=== PATIENT | female | born 1975 | race Caucasian/White ===

== ENCOUNTER 2017-02-26 12:32 | Emergency (ER) | payer MEDICAID ==
[2017-02-26 13:19] VITALS: BP 197/90
[2017-02-26] MEDS ORDERED: Sodium Chloride 0.9% 5 ML Syringe FLUSH PRN (13:23)
[2017-02-26 13:39] LABS: CHLORIDE,CL 105 mmol/L (98-115); SODIUM,NA 142 mmol/L (136-145)
--- NOTE | 2017-02-26 13:47 | EDM.PDOC ---
ED HPI GENERAL MEDICAL PROBLEM - General Chief Complaint: Abdominal Pain Stated Complaint: Abdominal pain and nausea Time Seen by Provider: 02/26/17 13:00 Source of Information: Reports: Patient History Limitations: Reports: No Limitations - History of Present Illness INITIAL COMMENTS - FREE TEXT/NARRATIVE: 41 YO WF presents to ER due to request for narcotic medication refill. Pt reports she was seen by Dr Rula Nelson in office yesterday and after her appointment she was expecting her hydrocodone prescription to be filled today. Pt went to the pharmacy and was told her prescription wouldn't be ready until tomorrow. Pt reports she feels nauseated and has a mild headache. Pt reports she came to ER specifically for pain medication. She denies abdominal pain, but states her stomach feels "upset". Pt refusing any antiemetics due to the fact that she has some at home. Pt denies any fever/chills, denies back pain, denies dysuria. Onset: today Duration: Day(s): (1) Severity: mild Improves with: Reports: None Worsens with: Reports: None Associated Symptoms: Reports: no other symptoms, headaches, nausea/vomiting Generalized Pain Score (Numeric/FACES): 5 - Related Data Allergies Allergy/AdvReac Type Severity Reaction Status Date / Time No Known Drug Allergies Allergy Cannot Verified 02/26/17 12:44 Remember sun Allergy Rash Uncoded 11/17/16 15:27 Home Meds: Home Meds Zolpidem [Ambien] 10 mg PO BEDTIME PRN 11/22/15 [History] Cholestyramine (With Sugar) [Cholestyramine Powder] 1 scoop PO DAILY 01/13/16 [ History] FLUoxetine HCl [Prozac] 40 mg PO DAILY 01/13/16 [History] medroxyPROGESTERone Acetate [Depo-Provera] 150 mg IM Q3M 01/13/16 [History] Hydrocodone/Acetaminophen [Hydrocodon-Acetaminophn 10-325] 1 each PO TID [History] Omeprazole [Omeprazole] 40 mg PO DAILY 11/17/16 [History] Ondansetron [Zuplenz] 4 mg PO TID PRN 11/17/16 [History] buPROPion [Wellbutrin XL] 150 mg PO DAILY 11/17/16 [History] busPIRone [Buspar] 10 mg PO TID PRN 11/17/16 [History] tiZANidine [Zanaflex] 4 mg PO TID PRN 11/17/16 [History] Meloxicam [Mobic] 7.5 mg PO BID PRN 02/26/17 [History] traZODone 1 - 2 tab PO BEDTIME 02/26/17 [History] Past Medical History HEENT History: Reports: Impaired vision Respiratory History: Reports: Intubation, previous Gastrointestinal History: Reports: Cholelithiasis, GERD, Irritable bowel syndrome Genitourinary History: Reports: None 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 - Past Surgical History HEENT Surgical History: Reports: Tonsillectomy, Other (see below) Other HEENT Surgeries/Procedures: removal of teeth GI Surgical History: Reports: Cholecystectomy, Hernia, abdominal, Hernia repair/ other Female Surgical History: Reports: section Social & Family History - Family History Family Medical History: Noncontributory - Tobacco Use Smoking Status *Q: Current Every Day Smoker Years of Tobacco use: 25 Packs/Tins Daily: 1 Used Tobacco, but Quit: No Second Hand Smoke Exposure: No - Caffeine Use Caffeine Use: Reports: Soda - Alcohol Use Days Per Week of Alcohol Use: 0 - Recreational Drug Use Recreational Drug Use: No - Living Situation & Occupation Living situation: Reports: with family ED ROS GENERAL - Review of Systems Review Of Systems: See Below Constitutional: Reports: No Symptoms HEENT: Reports: No Symptoms Respiratory: Reports: No Symptoms Cardiovascular: Reports: No Symptoms Endocrine: Reports: No Symptoms GI/Abdominal: Reports: Nausea : Reports: No Symptoms Musculoskeletal: Reports: No Symptoms Skin: Reports: No Symptoms Neurological: Reports: No Symptoms Psychiatric: Reports: No Symptoms Hematologic/Lymphatic: Reports: No Symptoms Immunologic: Reports: No Symptoms ED EXAM, GI/ABD - Physical Exam Exam: See Below Exam Limited By: No Limitations General Appearance: Alert, WD/WN, No Apparent Distress Throat/Mouth: Normal Inspection, Normal Lips, Normal Teeth, Normal Gums, Normal Oropharynx, Normal Voice, No Airway Compromise Head: Atraumatic, Normocephalic Neck: Normal Inspection, Supple, Non-Tender, Full Range of Motion Respiratory/Chest: No Respiratory Distress, Lungs Clear, Normal Breath Sounds, No Accessory Muscle Use, Chest Non-Tender Cardiovascular: Normal Peripheral Pulses, Regular Rate, Rhythm, No Edema, No Gallop, No JVD, No Murmur, No Rub GI/Abdominal: Normal Bowel Sounds, Soft, Non-Tender, No Organomegaly, No Distention, No Abnormal Bruit, No Mass Back Exam: Normal Inspection, Full Range of Motion, NT Extremities: Normal Inspection, Normal Range of Motion, Non-Tender, Normal Capillary Refill, No Pedal Edema Neurological: Alert, Oriented, CN II-XII Intact, Normal Cognition, Normal Gait, Normal Reflexes, No Motor/Sensory Deficits Psychiatric: Normal Affect, Normal Mood Skin Exam: Warm, Dry, Intact, Normal Color, No Rash Lymphatic: No Adenopathy Course - Vital Signs Last Recorded V/S: Last Vital Signs Temp 37.2 C 02/26/17 13:12 Pulse 74 02/26/17 13:12 Resp 20 02/26/17 13:12 BP 197/90 H 02/26/17 13:12 Pulse Ox 97 02/26/17 13:12 - Orders/Labs/Meds Orders: Active Orders 24 hr Category Date Time Status Peripheral IV Care [RC] . DIRECTED Care 02/26/17 13:23 Active Sodium Chloride 0.9% [Syrex Flush] Med 02/26/17 13:23 Active 5 ml FLUSH Q8HR PRN Peripheral IV Insertion Adult [OM.PC] Routine Oth 02/26/17 13:23 Ordered Medication Orders Sodium Chloride (Syrex Flush) 5 ml FLUSH Q8HR PRN PRN Reason: Keep Vein Open Labs: Laboratory Tests 02/26/17 02/26/17 02/26/17 Range/Units 13:10 13:10 13:15 WBC 8.6 (5.0-10.0) 10^3/uL RBC 4.70 (3.80-5.50) 10^6/uL Hgb 14.1 (12.0-16.0) g/dL Hct 41.9 (37.0-47.0) % MCV 89.2 (82.0-92.0) fL MCH 30.0 (27.0-31.0) pg MCHC 33.7 (32.0-36.0) g/dL RDW 12.7 (11.5-14.5) % Plt Count 342 H (150-300) 10^3/uL MPV 7.9 (7.4-10.4) fL Neut % (Auto) 70.4 H (50.0-70.0) % Lymph % (Auto) 23.7 (20.0-40.0) % [place] % (Auto) 3.9 (2.0-8.0) % Eos % (Auto) 1.5 (1.0-3.0) % Baso % (Auto) 0.5 (0.0-1.0) % Neut # (Auto) 6.2 (2.5-7.0) 10^3/uL Lymph # (Auto) 2.0 (1.0-4.0) 10^3/uL [place] # (Auto) 0.3 (0.1-0.8) 10^3/uL Eos # (Auto) 0.1 (0.1-0.3) 10^3/uL Baso # (Auto) 0.0 (0.0-0.1) 10^3/uL Sodium 142 (136-145) mmol/L Potassium 3.9 (3.3-5.3) mmol/L Chloride 105 (98-115) mmol/L Carbon Dioxide 26.5 (21.0-32.0) mmol/L BUN 14 (6-25) mg/dL Creatinine 0.64 (0.51-1.17) mg/dL Est Cr Clr Drug Dosing 100.90 mL/min Estimated GFR (MDRD) > 60 mL/min Glucose 105 (70-110) mg/dL Calcium 9.1 (8.7-10.3) mg/dL Total Bilirubin 0.3 (0.2-1.0) mg/dL AST 11 L (15-37) U/L ALT 22 (12-78) U/L Alkaline Phosphatase 102 (46-116) IU/L Total Protein 7.7 (6.4-8.2) g/dL Albumin 3.99 (3.00-4.80) g/dL Lipase 119 (73-393) U/L HCG, Qual Negative (NEGATIVE) Specimen Type Urinvoid Urine Color Yellow (YELLOW) Urine Appearance Clear (CLEAR) Urine pH 5.5 (5.0-9.0) Ur Specific [place] 1.010 (1.005-1.030) Urine Protein Negative (NEGATIVE) mg/dL Urine Glucose (UA) Negative (NEGATIVE) mg/dL Urine Ketones Negative (NEGATIVE) mg/dL Urine Occult Blood Trace-intact H (NEGATIVE) Urine Nitrite Negative (NEGATIVE) Urine Bilirubin Negative (NEGATIVE) Urine Urobilinogen 0.2 (0.2-1.0) E.U./dL Ur Leukocyte Esterase Negative (NEGATIVE) Urine RBC 0-5 /HPF Urine WBC Not seen /HPF Ur Epithelial Cells Moderate H /LPF Urine Bacteria Occasional (NONE TO FEW) /HPF Meds: Medications Generic Name Dose Route Start Last Admin Trade Name Freq PRN Reason Stop Dose Admin Sodium Chloride 5 ml 02/26/17 13:23 Syrex Flush FLUSH Q8HR PRN Keep Vein Open Departure - Departure Time of Disposition: 13:49 Disposition: Home, Self-Care 01 Condition: good Clinical Impression: Nausea, Medication refill - Discharge Information Instructions: Nausea, Adult, Medicine Refill at the Emergency Department Referrals: Rula Dior MD [Primary Care Provider] - - My Orders Last 24 Hours: My Active Orders 02/26/17 13:23 Peripheral IV Care [RC] . DIRECTED Sodium Chloride 0.9% [Syrex Flush] 5 ml FLUSH Q8HR PRN Peripheral IV Insertion Adult [OM.PC] Routine - Assessment/Plan Last 24 Hours: My Active Orders 02/26/17 13:23 Peripheral IV Care [RC] . DIRECTED Sodium Chloride 0.9% [Syrex Flush] 5 ml FLUSH Q8HR PRN Peripheral IV Insertion Adult [OM.PC] Routine Assessment:: 1. prescription refill 2. nausea 3. mild headache Plan: 1. hydrocodone 10/325mg PO once 2. follow up with Dr Rula Nelson for medication refill in am 3. return to ER for worsening symptoms
[2017-02-26] MEDS ORDERED: Acetaminophen/HYDROcodone 325-10 MG Tab PO ONE (13:51)
== END 2017-02-26 14:05 | disposition home or self-care (01) ==
LOC: KA.ED 12:32
DX: R11.0 Nausea (principal); R51 Headache; Z76.0 Encounter for issue of repeat prescription; K21.9 Gastro-esophageal reflux disease without esophagitis; F41.9 Anxiety disorder, unspecified; F32.9 Major depressive disorder, single episode, unspecified; E66.9 Obesity, unspecified; F17.210 Nicotine dependence, cigarettes, uncomplicated; Z98.890 Other specified postprocedural states; Z91.09 Other allergy status, other than to drugs and biological substances; Z79.899 Other long term (current) drug therapy; Z90.49 Acquired absence of other specified parts of digestive tract
CPT/HCPCS: 80053; 81001; 83690; 84703; 85025; 99284; A9270

== ENCOUNTER 2017-09-19 13:40 | Emergency (ER) | payer SELFPAY ==
[2017-09-19 13:51] VITALS: BP 136/74
[2017-09-19] MEDS ORDERED: Ketorolac 60 MG/2 ML SDV IM ONE (14:27)
[2017-09-19] MEDS ORDERED: Ketorolac 10 MG Tab PO SCH (14:30)
--- NOTE | 2017-09-19 14:43 | EDM.PDOC ---
ED HPI GENERAL MEDICAL PROBLEM - General Chief Complaint: Back Pain or Injury Stated Complaint: right hip and knee pain Time Seen by Provider: 09/19/17 14:09 Source of Information: Reports: Patient History Limitations: Reports: No Limitations - History of Present Illness INITIAL COMMENTS - FREE TEXT/NARRATIVE: Patient presents with low back pain and left knee pain after falling when she tripped over the curb in front of [employer] today. She denies LOC or head injury. She thinks she kind of landed and rolled at the same time and hit her left knee and low back. She has a little pain down the right leg but no numbness or tingling. No hand, wrist or arm pain. She has chronic low back pain and has had trigger point injections and epidural injections in the recent past. Denies heart, lung, kidney or liver problems. Back Pain Score (Numeric/FACES): 10 - Related Data Allergies Allergy/AdvReac Type Severity Reaction Status Date / Time No Known Drug Allergies Allergy Cannot Verified 02/26/17 12:44 Remember sun Allergy Rash Uncoded 02/26/17 15:52 Home Meds: Home Meds Cholestyramine (With Sugar) [Cholestyramine Powder] 1 scoop PO DAILY 01/13/16 [ History] medroxyPROGESTERone Acetate [Depo-Provera] 150 mg IM Q3M 01/13/16 [History] Omeprazole [Omeprazole] 40 mg PO DAILY 11/17/16 [History] Ondansetron [Zuplenz] 4 mg PO TID PRN 11/17/16 [History] traZODone 1 - 2 tab PO BEDTIME 02/26/17 [History] ARIPiprazole [Abilify] 5 mg PO DAILY 09/19/17 [History] Citalopram Hydrobromide [Celexa] 20 mg PO DAILY 09/19/17 [History] clonazePAM [Clonazepam] 1 - 2 mg PO DAILY PRN 09/19/17 [History] Past Medical History HEENT History: Reports: Impaired Vision Respiratory History: Reports: Intubation, Previous Gastrointestinal History: Reports: Cholelithiasis, GERD, Irritable Bowel Syndrome Genitourinary History: Reports: None 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 - Past Surgical History HEENT Surgical History: Reports: Oral Surgery, Tonsillectomy Other HEENT Surgeries/Procedures: dentures GI Surgical History: Reports: Cholecystectomy, Hernia, Abdominal, Hernia Repair/ Other Female Surgical History: Reports: Section Endocrine Surgical History: Reports: None Musculoskeletal Surgical History: Reports: None Social & Family History - Family History Family Medical History: Noncontributory - Tobacco Use Smoking Status *Q: Former Smoker Years of Tobacco use: 25 Packs/Tins Daily: 1 Used Tobacco, but Quit: Yes Month Tobacco Last Used: january Second Hand Smoke Exposure: No - Caffeine Use Caffeine Use: Reports: Coffee, Soda - Alcohol Use Days Per Week of Alcohol Use: 0 - Recreational Drug Use Recreational Drug Use: Yes Recreational Drug Type: Reports: Fentanyl - Living Situation & Occupation Living situation: Reports: with Family ED ROS GENERAL - Review of Systems Review Of Systems: See Below Constitutional: Denies: Fever, Chills, Weakness, Diaphoresis HEENT: Denies: Ear Discharge, Nosebleed, Throat Pain, Vision Change (initially she saw something like clouds in the distance but that resolved fairly quickly to normal) Respiratory: Denies: Shortness of Breath, Cough Cardiovascular: Denies: Chest Pain, Lightheadedness, Syncope GI/Abdominal: Denies: Abdominal Pain (nothing new), Stool Incontinence, Vomiting : Denies: Dysuria, Flank Pain Musculoskeletal: Reports: Back Pain, Joint Pain (left lateral knee). Denies: Neck Pain, Shoulder Pain, Arm Pain, Hand Pain, Joint Swelling Skin: Denies: Cyanosis, Jaundice, Mottled, Pallor, Diaphoresis Neurological: Reports: Headache (prior to the fall). Denies: Confusion, Dizziness, Numbness, Seizure, Syncope, Tingling, Trouble Speaking, Difficulty Walking, Change in Speech Psychiatric: Denies: Agitation, Anxiety, Confusion ED EXAM,LOWER BACK PAIN/INJURY - Physical Exam Exam: See Below Exam Limited By: No Limitations General Appearance: Alert, WD/WN, No Apparent Distress Eye Exam: Bilateral Eye: EOMI, Normal Inspection, PERRL Ears: Normal External Exam, Hearing Grossly Normal Nose: Normal Inspection, No Blood Throat/Mouth: Normal Inspection, Normal Lips, Normal Voice, No Airway Compromise Head: Atraumatic, Normocephalic Neck: Normal Inspection, Supple, Non-Tender, Full Range of Motion. No: Tender Lateral, Tender Midline Respiratory/Chest: No Respiratory Distress, Lungs Clear, Normal Breath Sounds, No Accessory Muscle Use Cardiovascular: Normal Peripheral Pulses, Regular Rate, Rhythm, No Murmur GI/Abdominal: Soft, Non-Tender, No Organomegaly, No Distention Back Exam: Muscle Spasm (lumbar R>L), Paraspinal Tenderness (with muscle spasm) , Vertebral Tenderness (low lumbar but not as tender as right lateral). No: CVA Tenderness (L), CVA Tenderness (R) Extremities: Normal Range of Motion, Normal Capillary Refill, Redness (mild contusion over lateral left patella; no abrasion, laceration or ecchymosis), Other (Left knee is tender to palpation over the LCL but no ecchymosis. Full ROM and no ligament laxity. Patella nontender.) Neurological: Alert, Normal Mood/Affect, Normal Dorsiflexion (bilat 5/5), CN II- XII Intact, Normal Plantar Flexion (bilat 5/5), No Motor/Sensory Deficits, Oriented x 3, Straight Leg Raise (R) (normal with 5/5 strength bilat but this causes low back pain at 10 degrees R>L) Psychiatric: Normal Affect, Normal Mood Skin Exam: Warm, Dry, Intact, Normal Color, No Rash Course - Vital Signs Last Recorded V/S: Last Vital Signs Temp 97.2 F 09/19/17 13:43 Pulse 81 09/19/17 13:43 Resp 20 09/19/17 13:43 BP 136/74 09/19/17 13:43 Pulse Ox 100 09/19/17 13:43 - Orders/Labs/Meds Orders: Active Orders 24 hr Category Date Time Status Cyclobenzaprine [Flexeril] Med 09/19/17 21:00 Ordered 10 mg PO TID Ketorolac [Toradol] Med 09/19/17 14:30 Ordered 10 mg PO Q6H Medication Orders Cyclobenzaprine HCl (Flexeril) 10 mg PO TID LEXI Stop: 12/03/17 21:01 Ketorolac Tromethamine (Toradol) 10 mg PO Q6H LEXI Stop: 09/20/17 08:31 Meds: Medications Generic Name Dose Route Start Last Admin Trade Name Keo PRN Reason Stop Dose Admin Cyclobenzaprine HCl 10 mg 09/19/17 21:00 Flexeril PO 09/20/17 21:01 TID LEXI Ketorolac Tromethamine 10 mg 09/19/17 14:30 Toradol PO 09/20/17 08:31 Q6H LEXI Discontinued Medications Generic Name Dose Route Start Last Admin Trade Name Keo PRN Reason Stop Dose Admin Ketorolac Tromethamine 60 mg 09/19/17 14:27 Toradol IM 09/19/17 14:28 ONETIME ONE - Re-Assessments/Exams Free Text/Narrative Re-Assessment/Exam: 09/19/17 14:56 Discussed findings and treatment plan with patient. I feel xrays are not necessary but if she notices increasing midline back pain or leg symptoms she should get that rechecked in ER or clinic. She is agreeable to this. Toradol is administered but she wants to wait until tonight for the Flexeril. Patient remained stable throughout ER course and was discharged to home. Departure - Departure Time of Disposition: 14:48 Disposition: Home, Self-Care 01 Condition: Good Clinical Impression: Contusion of left knee, initial encounter Strain of lumbar region Qualifiers: Encounter type: initial encounter Qualified Code(s): S39.012A - Strain of muscle, fascia and tendon of lower back, initial encounter - Discharge Information Referrals: Rula Dior MD [Primary Care Provider] - Additional Instructions: 1. Take the Ketorolac and Flexeril as directed and needed. Wait 12 hours to take any Ketorolac since you had that injected in the ER. 2. Don't use the Flexeril when you need to be alert as for driving, etc. 3. Follow up with your PCP in 3-4 days if not improving and as needed. 4. Drink 8 cups of water daily. - My Orders Last 24 Hours: My Active Orders 09/19/17 14:30 Ketorolac [Toradol] 10 mg PO Q6H 09/19/17 21:00 Cyclobenzaprine [Flexeril] 10 mg PO TID - Assessment/Plan Last 24 Hours: My Active Orders 09/19/17 14:30 Ketorolac [Toradol] 10 mg PO Q6H 09/19/17 21:00 Cyclobenzaprine [Flexeril] 10 mg PO TID
[2017-09-19] MEDS ORDERED: Cyclobenzaprine 10 MG Tab PO SCH (21:00)
== END 2017-09-19 14:55 | disposition home or self-care (01) ==
LOC: KA.ED 13:40
DX: S39.012A Strain of muscle, fascia and tendon of lower back, initial encounter (principal); S80.02XA Contusion of left knee, initial encounter; K21.9 Gastro-esophageal reflux disease without esophagitis; F32.9 Major depressive disorder, single episode, unspecified; Z87.891 Personal history of nicotine dependence; Z79.899 Other long term (current) drug therapy; Z91.048 Other nonmedicinal substance allergy status; W18.09XA Striking against other object with subsequent fall, initial encounter; Y92.512 Supermarket, store or market as the place of occurrence of the external cause
CPT/HCPCS: 96372; 99283; A9270; J1885

== ENCOUNTER 2019-12-11 12:53 | Emergency (ER) | payer MEDICAID ==
--- NOTE | 2019-12-11 12:56 | EDM.PDOC ---
ED HPI GENERAL MEDICAL PROBLEM - General Chief Complaint: Genitourinary Problem Stated Complaint: BURNING WHEN PEEING Time Seen by Provider: 12/11/19 12:56 Source of Information: Reports: Patient History Limitations: Reports: No Limitations - History of Present Illness INITIAL COMMENTS - FREE TEXT/NARRATIVE: Onset 0300 this morning. Pain with urination as well as some radiation to the flank but more superficial. Has history of UTIs but states this is slightly different, more severe with earlier onset of hematuria. Used Azo but no improvement or typically some improvement. Sexual intercourse night x3, which she states is not the usual. Denies any vaginal discharge or pain. Eyes any travel or issues of dehydration and/or long holding of urine. History of renal lithiasis. Denies fever or chills. Onset: Today Onset Date: 12/11/19 Onset Time: 03:00 Duration: Hour(s):, Getting Worse Location: Reports: Abdomen, Pelvis Quality: Reports: Ache, Burning Severity: Severe Improves with: Reports: None Worsens with: Reports: Movement Context: Reports: Activity Associated Symptoms: Reports: No Other Symptoms Perineal Area Pain Score (Numeric/FACES): 6 - Related Data Allergies Allergy/AdvReac Type Severity Reaction Status Date / Time No Known Drug Allergies Allergy Cannot Verified 12/11/19 13:12 Remember sun Allergy Rash Uncoded 12/11/19 13:12 Home Meds: Home Meds Omeprazole 40 mg PO DAILY 11/17/16 [History] Ondansetron [Zuplenz] 4 mg PO TID PRN 11/17/16 [History] clonazePAM [Clonazepam] 1 - 2 mg PO DAILY PRN 09/19/17 [History] Ibuprofen 800 mg PO TID 12/11/19 [History] Phenazopyridine HCl [Pyridium] 200 mg PO Q8HR #6 tablet 12/11/19 [Rx] Sulfamethoxazole/Trimethoprim [Bactrim Ds Tablet] 1 each PO BID 6 Days #12 tablet 12/11/19 [Rx] Past Medical History HEENT History: Reports: Impaired Vision Respiratory History: Reports: Intubation, Previous Gastrointestinal History: Reports: Cholelithiasis, GERD, Irritable Bowel Syndrome Genitourinary History: Reports: None JEWELRY JOBBER History: Reports: Other JEWELRY JOBBER History: HPV Musculoskeletal History: Reports: Back Pain, Chronic Neurological History: Reports: None Psychiatric History: Reports: Addiction, Anxiety, Depression Endocrine/Metabolic History: Reports: Obesity/BMI 30+ - Infectious Disease History Infectious Disease History: Reports: Human Papilloma Virus (HPV) Other Infectious Disease History: staph infection after surgery last year, does not think that it was MRSA. - Past Surgical History HEENT Surgical History: Reports: Oral Surgery, Tonsillectomy Other HEENT Surgeries/Procedures: dentures GI Surgical History: Reports: Cholecystectomy, Hernia, Abdominal, Hernia Repair/ Other Female Surgical History: Reports: Section Endocrine Surgical History: Reports: None Musculoskeletal Surgical History: Reports: None Social & Family History - Family History Family Medical History: Noncontributory - Caffeine Use Caffeine Use: Reports: Coffee, Soda - Living Situation & Occupation Living situation: Reports: with Family ED ROS GENERAL - Review of Systems Review Of Systems: See Below Constitutional: Reports: No Symptoms HEENT: Reports: No Symptoms Respiratory: Reports: No Symptoms Cardiovascular: Reports: No Symptoms Endocrine: Reports: No Symptoms GI/Abdominal: Reports: No Symptoms : Reports: Dysuria, Hematuria Musculoskeletal: Reports: Back Pain Skin: Reports: No Symptoms Neurological: Reports: No Symptoms Psychiatric: Reports: No Symptoms Hematologic/Lymphatic: Reports: No Symptoms Immunologic: Reports: No Symptoms ED EXAM, GENERAL - Physical Exam Exam: See Below Free Text/Narrative:: Alert oriented in mild painful distress. HEENT is negative for discharge or deformity, with pink moist mucous membranes. Neck is soft supple no lymphadenopathy Thorax is clear with no wheezes no crackles. Cardiac is regular no noted murmur. Abdomen is soft bowel sounds present, mild tenderness to the paraspinal muscles and musculature with superficial touch in the lumbar region. Caution induces pain but seemingly more superficial than deep. Acknowledges 3 UTIs per symptoms in the past 1 to 2 months with homeopathic treatment. Exam Limited By: No Limitations General Appearance: Alert, WD/WN, No Apparent Distress Course - Vital Signs Last Recorded V/S: Last Vital Signs Temp Pulse 100 12/11/19 13:09 Resp 16 12/11/19 13:09 BP 148/87 H 12/11/19 13:09 Pulse Ox 95 12/11/19 13:09 - Orders/Labs/Meds Orders: Active Orders 24 hr Category Date Time Status UA W/MICROSCOPIC [URIN] Stat Lab 12/11/19 13:05 Results Labs: Laboratory Tests 12/11/19 Range/Units 13:05 Urine Color Yellow (YELLOW) Urine Appearance Turbid H (CLEAR) Urine pH 6.0 (5.0-9.0) Ur Specific [place] 1.025 (1.005-1.030) Urine Protein >=300 H (NEGATIVE) mg/dL Urine Glucose (UA) 100 H (NEGATIVE) mg/dL Urine Ketones Negative (NEGATIVE) mg/dL Urine Occult Blood Large H (NEGATIVE) Urine Nitrite Positive H (NEGATIVE) Urine Bilirubin Small H (NEGATIVE) Urine Urobilinogen 1.0 (0.2-1.0) E.U./dL Ur Leukocyte Esterase Moderate H (NEGATIVE) Meds: Medications Discontinued Medications Generic Name Dose Route Start Last Admin Trade Name Michealq PRN Reason Stop Dose Admin Ketorolac Tromethamine 30 mg 12/11/19 13:14 12/11/19 13:41 Toradol IM 12/11/19 13:15 30 mg ONETIME ONE Administration Departure - Departure Time of Disposition: 14:17 Disposition: Home, Self-Care 01 Condition: Good Clinical Impression: UTI, Urinary tract infectious disease, Hematuria due to acute cystitis - Discharge Information *PRESCRIPTION DRUG MONITORING PROGRAM REVIEWED*: Not Applicable *COPY OF PRESCRIPTION DRUG MONITORING REPORT IN PATIENT TJ: Not Applicable Instructions: Urinary Tract Infection, Adult, [id number] Referrals: Rula Dior MD [Primary Care Provider] - Forms: ED Department Discharge Additional Instructions: Bactrim DS 1 capsule twice daily with increased water for the next 7 days. Provided 2 tablets here and a prescription will be sent to your pharmacy. Pyridium 200 mg 3 times daily for 3 days to aid in your discomfort. You need to increase your fluid intake significantly to help flush your kidneys and bladder. Need to take all of the Bactrim completing the full 7-day prescription. You need to follow-up in the week after your antibiotic completes with a repeat urine to assure complete resolution of the infection as you have had ongoing issues for the past 6 weeks prior to this event requiring treatment. Call clinic or return if symptoms do not start showing improvement after 24 to 36 hours of antibiotic, or if you develop fever or worsening symptoms after 24 hours of treatment. Sepsis Event Note - Focused Exam Vital Signs: Vital Signs Pulse Resp BP Pulse Ox 12/11/19 13:09 100 16 148/87 H 95 Date Exam was Performed: 12/11/19 Time Exam was Performed: 14:07 - Problem List & Annotations (1) Dysuria SNOMED Code(s): 33934631 Code(s): R30.0 - DYSURIA Status: Acute Priority: High Current Visit: Yes (2) Back pain SNOMED Code(s): 355343705 Code(s): M54.9 - DORSALGIA, UNSPECIFIED Status: Acute Priority: High Current Visit: Yes (3) Hematuria due to acute cystitis SNOMED Code(s): 841321382573410 Code(s): N30.01 - ACUTE CYSTITIS WITH HEMATURIA Status: Acute Priority: High Current Visit: Yes - Problem List Review Problem List Initiated/Reviewed/Updated: Yes - My Orders Last 24 Hours: My Active Orders 12/11/19 13:05 UA W/MICROSCOPIC [URIN] Stat - Assessment/Plan Last 24 Hours: My Active Orders 12/11/19 13:05 UA W/MICROSCOPIC [URIN] Stat Plan: Bactrim DS 1 capsule twice daily with increased water for the next 7 days. Provided 2 tablets here and a prescription will be sent to your pharmacy. Pyridium 200 mg 3 times daily for 3 days to aid in your discomfort. You need to increase your fluid intake significantly to help flush your kidneys and bladder. Need to take all of the Bactrim completing the full 7-day prescription. You need to follow-up in the week after your antibiotic completes with a repeat urine to assure complete resolution of the infection as you have had ongoing issues for the past 6 weeks prior to this event requiring treatment. Call clinic or return if symptoms do not start showing improvement after 24 to 36 hours of antibiotic, or if you develop fever or worsening symptoms after 24 hours of treatment.
[2019-12-11 13:13] VITALS: BP 148/87; PULSE 100
[2019-12-11] MEDS ORDERED: Ketorolac 30 MG/ML SDV IM ONE (13:14)
[2019-12-11] MEDS ORDERED: Sulfamethoxazole/Trimethoprim 800-160 MG Tab PO SCH (14:15)
[2019-12-11] MEDS ORDERED: Phenazopyridine 100 MG Tab ONE (14:27)
[2019-12-11] MEDS ORDERED: Phenazopyridine 100 MG Tab PO SCH (21:00)
== END 2019-12-11 14:35 | disposition home or self-care (01) ==
LOC: KA.ED 12:53
DX: N30.01 Acute cystitis with hematuria (principal); Z91.048 Other nonmedicinal substance allergy status; Z79.899 Other long term (current) drug therapy
CPT/HCPCS: 81001; 87086; 96372; 99283; A9270; J1885